=== PATIENT | male | born 1985 | race Caucasian/White ===

== ENCOUNTER 2021-11-22 12:38 | Emergency (ER) | payer SELFPAY ==
--- OUTSIDE RECORDS SUMMARY | 2021-11-22 12:40 | XMS REPORT | Continuity of Care Document ---
:1985 Author Organization [facility] Address [address] [place] [address] [address]. [address] [place] [address] Care Team Providers Name Role Phone MD Liam ALLEN Attending Clinician Unavailable ESTEFANY MCBRIDE Admitting Clinician Unavailable Problems This patient has no known problems. Allergies, Adverse Reactions, Alerts This patient has no known allergies or adverse reactions. Medications This patient has no known medications. Procedures This patient has no known procedures. Encounters Start End Encounter Admission Attending Care Care Encounter Source Date/Time Date/Time Type Type Clinicians Facility Department ID 2021-10-04 2021-10-04 Emergency [facility] [id number] [place] 00:00:00 00:00:00 KATELYN [address] Results Test Description Test Time Test Comments Results Result Comments Source SARS-CoV-2 (COVID-19) RNA [Presence] in Respiratory sp ecimen by 2021-10-05 00:02:10 JAZZ with probe detection Test Item Value Reference Range Interpretation Comme nts SARS-CoV-2 (COVID-19) RNA [Presence] in Respiratory specimen by Not detected JAZZ with probe detection (test code = 28354-9) Whether patient is employed in a healthcare setting (test code = Un known 69588-4) Whether the patient has symptoms related to condition of interest Y es (test code = 54625-0) Whether the patient was hospitalized for condition of interest No (test code = 02034-7) Whether the patient was admitted to intensive care unit (ICU) for N o condition of interest (test code = 09968-3) Whether patient resides in a congregate care setting (test code = U nknown 70886-3) status (test code = 57102-3) No Date and time of symptom onset (test code = 66055-2) Unknown
[2021-11-22 14:13] LABS: SARS-COV-2 RT PCR NEGATIVE (NEGATIVE)
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
[2021-11-22 16:02] VITALS: BP 142/89; TEMP 97.7; O2SAT 100
== END 2021-11-22 15:02 | disposition home or self-care (01) ==
LOC: ER 12:38
DX: J02.9 Acute pharyngitis, unspecified (principal); Z20.822 Contact with and (suspected) exposure to COVID-19
CPT/HCPCS: 0240U; 87070; 87081; 99281

== ENCOUNTER 2024-05-31 22:13 | Emergency (ER) | payer OTHER, SELFPAY ==
[2024-05-31] MEDS ORDERED: NA CHLORIDE 0.9% 1,000 ML ONE (22:47)
[2024-05-31] MEDS ORDERED: THIAMINE 200 MG/2 ML INJ ONE (22:47)
[2024-05-31 23:01] LABS: Absolute Eosinophils 0.2 K/uL (0-0.5); Absolute Lymphocytes (CBC) 1.9 K/uL (0.7-4.9); Absolute Monocytes 0.5 K/uL (0.1-1.3); Absolute Neutrophil 4.5 K/uL (1.8-8.0); Basophils % 0.7 % (0-1.3); Eosinophils % 2.5 % (0-4.4); Hematocrit 44.3 % (39.6-49.0); Hemoglobin 15.3 g/dL (13.6-17.9); Lymphocytes % 27.2 % (15.3-44.8); MCH 30.5 pg (27.0-35.0); MCHC 34.5 g/dL (32.0-36.0); MCV 88.6 fL (80-100); MPV 8.3 fL (7.6-11.3); Monocytes % 6.7 % (3.3-12.3); Neutrophils % 62.9 % (41.7-73.7); Nucleated Red Blood Cells % 0.1 % (0-0); Platelets 211 thou/uL (152-406); Red Cell Distribution Width 13.3 % (12.1-15.2)
[2024-05-31 23:13] LABS: PT Prothrombin Time 13.4 SECONDS (9.4-12.5); PTT, Activated Partial Thromb 32.1 SECONDS (24.3-36.9); Protime INR 1.2
[2024-05-31 23:23] LABS: ALT/SGPT 50 U/L (16-61); AST/SGOT 27 U/L (15-37); Albumin 4.3 g/dL (3.4-5.0); Albumin/Globulin Ratio 1.2 (1.1-1.8); Alkaline Phosphatase 90 U/L (45-117); Anion Gap 10.4 mEq/L (5.0-15.0); BUN Blood Urea Nitrogen 5 mg/dL (7-18); Bicarbonate 24 mEq/L (21-32); Bilirubin Direct 0.2 mg/dL (0-0.2); Bilirubin Indirect, Calculated 0.6 mg/dL (0.2-0.8); Bilirubin Total 0.8 mg/dL (0.2-1.0); Globulin 3.6 g/dL (2.3-3.5); Glomerular Filtration Rate 108 ml/min (=/>90); Glucose Level 111 mg/dL (74-106); Potassium 3.4 mEq/L (3.5-5.1); Protein, Total 7.9 g/dL (6.4-8.2); Sodium Level 144 mEq/L (136-145)
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
[2024-05-31 23:56] VITALS: TEMP 98.4
[2024-06-01 00:01] LABS: Specific Gravity < 1.005 (1.005-1.030); Sqamous Epithelial None Seen /HPF (None Seen); Urine Bacteria None Seen /HPF (<20); Urine Bilirubin NEGATIVE (Negative); Urine Blood Negative (Negative); Urine Clarity Clear (Clear); Urine Color Colorless (Yellow); Urine Crystals Unidentified Few /HPF (None Seen); Urine Culture Reflex Order NOT NEEDED; Urine Glucose NEGATIVE (Negative); Urine Ketones NEGATIVE (Negative); Urine Microscopic Reflex YN ORDER UMIC; Urine Nitrite NEGATIVE (Negative); Urine Protein NEGATIVE (Negative); Urine RBC <5 /HPF (None Seen); Urine Urobilinogen Normal (Normal); Urine WBC <5 /HPF (<5)
[2024-06-01 00:02] LABS: Barbiturates NEGATIVE (NEGATIVE); Benzodiazepines NEGATIVE (NEGATIVE); Cocaine NEGATIVE (NEGATIVE); METHAMPHETAM NEGATIVE (NEGATIVE); Methadone NEGATIVE (NEGATIVE); Opiates NEGATIVE (NEGATIVE); Phencyclidine NEGATIVE (NEGATIVE); THC Cannibis POSITIVE (NEGATIVE)
[2024-06-01 00:20] VITALS: BP 139/106; O2SAT 100
--- NOTE | 2024-06-03 12:18 | EKG ---
Test Date: 2024-05-31 Test Time: 22:28:25 Storekeeper Engineering: AF MEASUREMENT RESULTS: Intervals: Rate: 82 IN: 154 QRSD: 102 QT: 374 QTc: 436 [place]: P: 30 IN: 154 QRS: -24 T: 14 INTERPRETIVE STATEMENTS: Normal sinus rhythm with sinus arrhythmia Normal ECG No previous ECG available for comparison Electronically Signed On 06-03-24 12:15:54 HABILITATION ASSISTANT by Vinayak Singh
== END 2024-05-31 23:43 | disposition home or self-care (01) ==
LOC: ER 22:13
DX: F10.129 Alcohol abuse with intoxication, unspecified (principal); Y04.8XXA Assault by other bodily force, initial encounter; E87.6 Hypokalemia
CPT/HCPCS: 96365; 85025; 81001; 80048; 36415; 85610; 80076; 85730; 80307; 99285; 80143; 80179; 82077; J3411; J7030; 93005

== ENCOUNTER 2024-06-01 09:44 | Emergency (ER) | payer OTHER ==
--- OUTSIDE RECORDS SUMMARY | 2024-06-01 09:47 | XMS REPORT | Continuity of Care Document ---
Author Name Unknown Address [address] [place] [id number] [facility] thconnect Address [address] [place] [address] Care Team Providers Care Supervisor Audit Clerks Name Role Phone DR Lacho MANCERA Attending Clinician DR Lacho Perez Admitting Clinician Vikas edward Payers Payer Name Policy Type Policy Number Effective Date Expirati on Date Source [id number] 00:00:00 Allergies, Adverse Reactions, Alerts Allergy Name Allergy Type Status Severity Reaction(s) Onset Date Inactive Date Treating Clinician Comments Source No Known Allergie s DA Active [facility] Vital Signs Vital Name Observation Time Observation Value Comments S ource Height 2022-08-07 00:34:00 162.56 CM Weight 2022-08-07 00:34:00 104.32 KG Encounters Start Date/Time End Date/Time Encounter Type Admission Type Attending Clinicians Care Facility Care Department Encounter ID Source 2022-08-07 00:23:00 2022-08-07 02:22:00 Emergency E Lacho MANCERA [facility] [id number] [facility] Results Test Description Test Time Test Comments Results Resul t Comments Source CT CERVICAL SPINE W/O CONTRAST 2022-08-07 01:31:19 [facility] : 1985 Sex: M EX AM: CT CERVICAL SPINE WITHOUT IV CONTRASTHISTORY: Injury.TECHNIQUE: Axial tomograms through the cervical spine were obtained without intravenous contrast. Sagittal and coronal reformatted images are provided.This exam was performed according to our departmental dose-optimization program, which includes automated exposure control, adjustment of the mA and/or kV according to patient size and/or use of iterative reconstruction technique.COMPARISON: None available time of interpretation.FINDIN GS:Vertebral heights and alignment are maintained. No acute fracture or subluxation. The prevertebral soft tissues are within normal limits. The visualized soft tissues of the neck show no significant abnormalities. Degenerative disc disease and facet arthropathy is present particularly at C6-C7 level..IMPRESSION:No acute osseous abnormality. Electronically signed by: Blaze To MD 08/07/2022 1:[address] [facility] CT HEAD W/O CONTRAST 2022-08-07 01:27:31 [facility] : 1985 Sex: M EX AM: CT HEAD WITHOUT IV CONTRASTHISTORY: Injury.TECHNIQUE: Axial tomograms through the brain were obtained without intravenous contrast.This exam was performed according to our departmental dose-optimization program, which includes automated exposure control, adjustment of the mA and/or kV according to patient size and/or use of iterative reconstruction technique.COMPARISON: None available time of interpretation.FINDIN GS:There is no intracranial hemorrhage, or mass effect. The ventricular system and sulci are age-appropriate. The osseous structures and orbits, show no significant abnormalities. The visualized sinuses are relatively clear. The soft tissues are unremarkable.IMPRESSI ON:No acute intracranial abnormality with no evidence of intracranial hemorrhage.Electronic ally signed by: Blaze To MD 08/07/2022 1:[address] [facility]
--- NOTE | 2024-06-01 10:48 | RAD REPORT ---
EXAMINATION: TWO VIEW CHEST XR CLINICAL INDICATION: CHEST PAIN TECHNIQUE: 2 views of the chest was performed. COMPARISON: No prior exam. FINDINGS: The lungs are well inflated and clear. The heart is normal in size. No displaced fractures evident. IMPRESSION: No acute or significant abnormalities.
--- NOTE | 2024-06-01 10:54 | ER ---
Nurse's Notes [facility] Name: Zeus Race Age: 38 yrs Sex: Male : 1985 Arrival Date: 06/01/2024 Time: 09:44 Bed 19 Private MD: Diagnosis: Chest pain, [id number];Alcohol use, unspecified Presentation: 06/01 09:48 Chief complaint: Patient states: Has R sided CP and SOB from broken ribs. Chief ll1 complaint: EMS states: VSS. 18 R AC. Coronavirus screen: Client denies travel out of the [place] in the last 14 days. At this time, the client does not indicate any symptoms associated with coronavirus-19. Ebola Screen: Patient denies travel to an Ebola-affected area in the 21 days before illness onset. Initial Sepsis Screen: Does the patient meet any 2 criteria? No. Patient's initial sepsis screen is negative. Does the patient have a suspected source of infection? No. Patient's initial sepsis screen is negative. Risk Assessment: Do you want to hurt yourself or someone else? Patient reports no desire to harm self or others. Onset of symptoms was June 01, 2024. 09:48 Method Of Arrival: EMS: [facility] ll1 09:48 Acuity: PAM 3 ll1 Historical: - Allergies: 09:48 No Known Allergies; ll1 - PSHx: 09:48 left leg for compartment syndrome; nose-septum; Skin grafting; skin grafts to left leg; ll1 staph to left leg; - Immunization history:: Adult Immunizations up to date. - Infectious Disease History:: Denies. - Social history:: Smoking status: Patient denies any tobacco usage or history of. Screenin:04 [facility] ED Fall Risk Assessment (Adult) History of falling in the last 3 months, ll1 including since admission No falls in past 3 months (0 pts) Confusion or Disorientation No (0 pts) Intoxicated or Sedated No (0 pts) Impaired Gait Yes (1 pt) Mobility Assist Device Used Yes (1 pt) Altered Elimination Yes (1 pt) Score/Fall Risk Level 3 or more points = High Risk Maintained a safe environment, Hourly rounding (assess needs \T\ fall precautionary measures) done. Abuse screen: Denies threats or abuse. Nutritional screening: No deficits noted. Tuberculosis screening: No symptoms or risk factors identified. Assessment: 09:50 General: Appears distressed, uncomfortable, Behavior is cooperative, appropriate for ll1 age, restless. Pain: Complains of pain in chest Quality of pain is described as aching. Neuro: No deficits noted. Cardiovascular: Reports chest pain, shortness of breath. Respiratory: Reports shortness of breath labored breathing pain with respiration Airway is patent Trachea midline Respiratory effort is even, labored, Respiratory pattern is symmetrical, tachypnea Breath sounds are clear bilaterally. Onset: The symptoms/episode began/occurred 4 days. 11:08 Reassessment: No changes from previously documented assessment. Patient and/or family ll1 updated on plan of care and expected duration. Pain level reassessed. Patient is alert, oriented x 3, equal unlabored respirations, skin warm/dry/pink. Vital Signs: 09:51 BP 129 / 97; Pulse 85; Resp 26; Temp 98; Pulse Ox 100% on R/A; Pain 10/10; ll1 10:05 Pulse 86; Resp 24; Pulse Ox 100% on R/A; ll1 11:08 BP 131 / 81; Pulse 81; Resp 20; Pulse Ox 100% on R/A; ll1 09:51 Pain Scale: Adult ll1 ED Course: 09:46 Patient arrived in ED. ec2 09:48 Arm band placed on Patient placed in an exam room, on a stretcher. ll1 09:49 Triage completed. ll1 09:49 Davida Harrison FNP-C [facility] snw 09:49 Jm Doe MD is Attending Physician. snw 09:59 Maryjane Shaver, [place] is Primary Nurse. ll1 10:02 Troponin HS Sent. ll1 10:04 Patient has correct armband on for positive identification. Bed in low position. Call [facility] light in reach. Provided Education on: ER procedures and process. Client placed on continuous cardiac and pulse oximetry monitoring. NIBP monitoring applied. teletypesetter monitor on. 10:15 Troponin HS Sent. ll1 10:42 Chest Pa And Lat (2 Views) XRAY In Process Unspecified. EDMS 11:08 No provider procedures requiring assistance completed. IV discontinued, intact, ll1 bleeding controlled, No redness/swelling at site. Pressure dressing applied. 11:09 Maintain EMS IV. Dressing intact. Good blood return noted. Site clean \T\ dry. Gauge \T\ ll 1 site: 18 R AC. Flushed with 10 mL NS. Administered Medications: No medications were administered Medication: 11: VIS not applicable for this client. ll1 Outcome: 10:54 Discharge ordered by . snw 11:09 Discharged to home via wheelchair, ll1 11:09 Condition: stable 11:09 Discharge instructions given to patient, Instructed on discharge instructions, follow up and referral plans. medication usage, Demonstrated understanding of instructions, follow-up care, medications, Prescriptions given X 1, 11:10 Patient left the ED. ll1 Signatures: Dispatcher [employer] EDDavida Salgado, ORNAMENTAL BRONZE WORKER-C ORNAMENTAL BRONZE WORKER-Maryjane Cherry RN RN ll1 Jm Doe MD MD ec2 Corrections: (The following items were deleted from the chart) 09:55 09:51 BP 129 / 97; Pulse 85bpm; Resp 20bpm; Pulse Ox 100% RA; Temp 98F; Pain 05/09, ll1 Adult; ll1
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
[2024-06-01 11:14] VITALS: TEMP 98; O2SAT 100
[2024-06-01 11:16] VITALS: BP 131/81
--- NOTE | 2024-06-03 12:18 | EKG ---
Test Date: 2024-05-31 Test Time: 22:29:12 Digital Intern: AF MEASUREMENT RESULTS: Intervals: Rate: 83 KS: 156 QRSD: 106 QT: 378 QTc: 444 [place]: P: 31 KS: 156 QRS: -24 T: 14 INTERPRETIVE STATEMENTS: Normal sinus rhythm Normal ECG Compared to ECG 05/31/2024 22:28:25 Sinus arrhythmia no longer present Electronically Signed On 06-03-24 12:15:52 [employer] by Vinayak Singh
--- NOTE | 2024-06-04 12:25 | EKG ---
Test Date: 2024-06-01 Test Time: 10:09:37 Safety Admin Assistant: RICHIE MEASUREMENT RESULTS: Intervals: Rate: 80 [place]: 148 QRSD: 102 QT: 398 QTc: 459 [place]: P: 54 [place]: 148 QRS: 49 T: 27 INTERPRETIVE STATEMENTS: Normal sinus rhythm Normal ECG Compared to ECG 05/31/2024 22:29:12 No significant changes Electronically Signed On 06-04-24 12:19:10 HUMAN FACTORS SPECIALIST by Vinayak Singh
== END 2024-06-01 11:10 | disposition home or self-care (01) ==
LOC: ER 09:44
DX: R07.89 Other chest pain (principal); F10.90 Alcohol use, unspecified, uncomplicated
CPT/HCPCS: 36415; 71046; 84484; 93005; 99284